=== PATIENT | female | born 1945 | race Caucasian/White ===

== ENCOUNTER 2019-12-21 18:44 | Emergency (ER) | payer OTHER, SELFPAY ==
--- NOTE | ~2019-12-21 | CT_ITS ---
EXAMINATION: CT brain [facility] EXAM DATE: 12/21/2019 19:40 INDICATION: Fall, head injury. TECHNIQUE: Spiral CT of the head was performed without contrast. Axial, coronal and sagittal images were reviewed. The dose-length product (DLP) for this examination was 605.33 mGy-cm. The exposure w as tailored according to patient size, and iterative reconstruction (ASIR) was used as additional dos e reduction technique. There is no prior study for comparison. FINDINGS: There is no acute intraparenchymal hemorrhage. No evidence of intraparenchymal brain mass lesion. No evidence of acute infarction. Please note that initial head CT has limited sensitivity f or small or acute infarctions. There is mild periventricular and subcortical hypodensity, nonspecific but probably related to small vessel ischemic disease. There is moderate prominence of the sulci a nd ventricles related to cerebral atrophy. There is intracranial carotid arteriosclerosis. There a re no extra-axial collections. There is no mass effect or midline shift. The orbits are unremarkabl e. Soft tissue is unremarkable. The visualized sinuses and mastoid air cells are well aerated. IMPRESSION: 1. No acute intracranial findings. 2. Chronic age related findings. Reviewed, dictated and finalized at location A.
--- NOTE | ~2019-12-21 | XR_ITS ---
EXAMINATION: XR elbow RT 2V EXAM DATE: 12/21/2019 19:37 INDICATION: Initial encounter following injury, with pain of the right elbow. TECHNIQUE: Frontal and lateral projections of the right elbow. There is no prior study for comparis on. FINDINGS: There are no acute right elbow fractures or dislocations identified. There is no subcutane ous gas. There is prominent anterior fat pad without visualization of the posterior fat pad, could i ndicate small joint effusion. There are no radiopaque foreign bodies. IMPRESSION: 1. XR elbow RT 2V exam without acute osseous findings. 2. Possible small joint effusion. Reviewed, dictated and finalized at location A.
--- NOTE | ~2019-12-21 | XR_ITS ---
EXAMINATION: XR shoulder RT min 2V EXAM DATE: 12/21/2019 19:37 INDICATION: Initial encounter following injury, with pain of the right shoulder. TECHNIQUE: The following right shoulder projections obtained: frontal projection with internal rotati on, frontal projection with external rotation, Grashey, and scapular Y view (4+ views). There is no prior study for comparison. FINDINGS: No evidence of right shoulder rotator cuff calcific tendinosis. There is mild glenohumera l and acromioclavicular joint primary osteoarthritis. There are no acute fractures or dislocations id entified. There is no subcutaneous gas. The soft tissue is unremarkable. There are no radiopaque foreign bodies. IMPRESSION: No acute osseous findings. Reviewed, dictated and finalized at location A. IMPRESSION: No acute osseous findings.
[2019-12-21 19:11] VITALS: BP 121/96; PULSE 88; RESP 18; TEMP 36.4; O2SAT 100
[2019-12-21 20:33] VITALS: BP 174/93; PULSE 76; RESP 14; TEMP 36.6; O2SAT 99
--- NOTE | 2019-12-21 20:36 | ED.HEATRA ---
HPI - Head Injury General Chief complaint: Head Injury Stated complaint: HEAD INJURY Time Seen by Provider: 12/21/19 20:27 Source: patient and RN notes reviewed Mode of arrival: ambulatory Limitations: no limitations History of Present Illness HPI Narrative: Pt is a 74 y/o female who presents to the ED with c/o head injury happening this evening. She notes that she was trying to catch her falling around 17:30 this evening when she fell backwards and struck the back of her head on a plaster wall. Pt states that she made a hole in the wall with her head, but denies any LOC. She notes that she also landed on her rt shoulder and rt elbow during the fall, and currently reports rt elbow pain and a laceration on her rt 4th finger. She denies any vision changes, dizziness, or headache. Pt notes that she isn't currently taking any blood thinners. MD Complaint: head injury Onset (ago): hour(s) (3) Mechanism of Injury: fall Place: home Loss of Consciousness: no Location of injury: occipital Other Injuries: upper extremity (rt shoulder; rt elbow) Associated symptoms: other (rt elbow pain; laceration on rt 4th finger) Related Data Allergies Allergy/AdvReac Type Severity Reaction Status Date / Time ciprofloxacin Allergy Unknown Unknown Verified 12/21/19 20:37 Sulfa (Sulfonamide Allergy Unknown Ulcers Verified 12/21/19 20:37 Antibiotics) valsartan Allergy Unknown Unknown Verified 12/21/19 20:37 CIPROFLOXACIN HCL Allergy Severe SWELLING Uncoded 12/21/19 20:37 OF EYELIDS AND ANKLES, INDIGESTION Review of Systems Review of Systems: All systems reviewed & are unremarkable except as noted in HPI and below Eyes: Eyes: Denies change in vision Musculoskeletal: Musculoskeletal: Reports arthralgias (rt elbow pain) Integumentary/Breasts: Skin/Breast: Reports wounds (laceration on rt 4th finger) Neurologic: Denies dizziness, Denies headache(s) and Reports other (Reports: head injury. Denies: LOC) [facility] Past Medical History Medical History Back pain HLD (hyperlipidemia) HTN (hypertension) Left inguinal hernia UTI (urinary tract infection) Surgical History Surgical History Hx of knee surgery Hx of left inguinal hernia repair Hx of tonsillectomy Hx of tubal ligation Family History Family History (Updated 06/09/14 @ 07:13 by DOCTOR UNKNOWN) Mother Family history of rheumatoid arthritis Sibling Family history of rheumatoid arthritis Family history of osteoarthritis Family history of heart disease in male family member before age 55 Father Family history of heart disease in male family member before age 55 Social History Social History Smoking status: Former smoker Alcohol intake: current Gender identity (if verbalized by the patient): Female Exam Narrative: Exam Narrative: GENERAL: Well-appearing, well-nourished, and in no acute distress. HEAD: Normocephalic, atraumatic. CHEST: Clear to auscultation. No respiratory distress. HEART: Regular rate and rhythm. Normal peripheral pulses. EXTREMITIES: Normal range of motion. No edema. Small abrasion proximal aspect of the right fourth digit at the MCP. Underlying bruising noted. SKIN: Warm, dry, bruising right deltoid. NEURO: Alert and oriented x3. PSYCH: Normal mood and affect. Course Course Emergency Course: Tylenol for pain. D/c home. Vital Signs Vital signs: Vital Signs Temperature 97.6 F 12/21/19 19:11 Pulse Rate 88 12/21/19 19:11 Respiratory Rate 18 12/21/19 19:11 Blood Pressure 121/96 H 12/21/19 19:11 Pulse Oximetry 100 12/21/19 19:11 Temperature 97.9 F 12/21/19 20:33 Pulse Rate 76 12/21/19 20:33 Respiratory Rate 14 12/21/19 20:33 Blood Pressure 174/93 H 12/21/19 20:33 Pulse Oximetry 99 12/21/19 20:33 MDM - Head Injury Imaging Data Radiol
[2019-12-21] MEDS: ACETAMINOPHEN 325 MG TABLET 650 MG PO (21:18)
--- NOTE | 2019-12-21 21:18 | PC.NURSE ---
pt currently in husbands rm rm 14
[2019-12-21 21:20] VITALS: BP 127/88; PULSE 78; RESP 19; O2SAT 99
== END 2019-12-21 21:20 | disposition home or self-care (01) ==
PROVIDERS: Emergency Provider Emergency Medicine; PCP Emergency Medicine
DX: S60.414A Abrasion of right ring finger, initial encounter (principal); T14.8XXA Other injury of unspecified body region, initial encounter; E78.5 Hyperlipidemia, unspecified; I10 Essential (primary) hypertension; Z87.440 Personal history of urinary (tract) infections; Z87.891 Personal history of nicotine dependence; W03.XXXA Other fall on same level due to collision with another person, initial encounter
CPT/HCPCS: 70450; 73030; 73070; 99284; A9270